=== PATIENT | female | born 1970 ===

== ENCOUNTER → 2017-11-20 | Outpatient (CLI) | payer OTHER | END | disposition home or self-care (01) | LOC: LAB 09:40 | PROVIDERS: ATTEND Preventive Medicine Preventive Medicine/Occupational Environmental Medicine | DX: Z02.1 Encounter for pre-employment examination (principal) | CPT/HCPCS: 86735; 86762; 86765; 86787 ==

== ENCOUNTER 2019-08-27 15:03 | Inpatient (IN) | payer OTHER ==
[~2019-08-27] VITALS: Ht 167.6 cm; Wt 69.8 kg
[2019-08-27] MEDS ORDERED: ASCORBIC ACID 500 MG TAB PO ONE (15:45)
[2019-08-27] MEDS ORDERED: ZINC SULFATE 220mg CAP or TAB PO ONE (15:45)
[2019-08-27] MEDS ORDERED: AZITHROMYCIN 500MG/ 250ML 250 ML IV ONE (15:45)
[2019-08-27] MEDS ORDERED: methylPREDNISolone SOD SUCC 125 MG/2 ML VL IV ONE (15:45)
[2019-08-27] MEDS ORDERED: ENOXAPARIN SOD 100 MG/1 ML SYRINGE SC ONE (15:45)
[2019-08-27 16:59] LABS: Basophils # (auto) 0 10 ^3/uL (0-0.2); Basophils % (auto) 0.5 % (0.0-2.0); Eosinophils # (auto) 0 10 ^3/uL (0-0.8); Eosinophils % (auto) 0.1 % (0.0-7.0); Hematocrit 45.5 % (36.0-46.0); Hemoglobin 15.4 g/dL (12.2-16.2); Lymphocytes # (auto) 0.6 10 ^3/uL (0.4-5.4); Lymphocytes % (auto) 6.4 % (10.0-50.0); Mean Corpuscular Hemoglobin 31.5 pg (28.0-32.0); Mean Corpuscular Hgb Conc. 33.8 g/dL (32.0-36.0); Mean Corpuscular Volume 93.3 fL (80.0-100.0); Monocytes # (auto) 0.1 10 ^3/uL (0-1.3); Monocytes % (auto) 1.6 % (0.0-12.0); Neutrophils % (auto) 91.4 % (37.0-80.0); Platelet Count (auto) 302 10^3/uL (140-450); Red Blood Cells 4.87 10^6/uL (4.0-5.20); White Blood Cell 8.7 10^3/uL (4.4-10.8)
[2019-08-27 17:20] LABS: Albumin 4.2 g/dL (3.4-5.0); Anion Gap 4 (5-15); BUN/Creatinine Ratio 10.7; Blood Urea Nitrogen 9 mg/dL (7-18); CRP High Sensitivity 0.07 mg/dL (< 0.3); Calcium 9.2 mg/dL (8.5-10.1); Carbon Dioxide 27 mmol/L (21-32); Chloride 107 mmol/L (98-107); GFR African American 93 mL/min; GFR Non-African American 77 mL/min; Glucose 128 mg/dL (74-106); Sodium 138 mmol/L (136-145)
[2019-08-27 17:25] LABS: Alanine Aminotransferase 30 U/L (13-56); Alkaline Phosphatase 66 U/L (45-117); Aspartate Aminotransferase 18 U/L (15-37); Bilirubin, Total 0.5 mg/dL (0.2-1.0); Lactate Dehydrogenase 194 U/L (84-246); Total Protein 8.1 g/dL (6.4-8.2)
[2019-08-27] MEDS ORDERED: MORPHINE SULF INJ 2 MG/ML SYRINGE 1ML IV PRN (20:00)
[2019-08-27] MEDS ORDERED: NITROGLYCERIN 0.4 MG SL TAB SL PRN (20:00)
[2019-08-27 22:39] VITALS: BP 126/74
--- NOTE | 2019-08-27 22:39 | NUR ---
Opening note Telemetry admit from ER KEVON HERNANDEZ admitted to Telemetry unit after SBAR received. Patient oriented to JENNY RYAN, RN primary RN, unit, room, bed, and unit policies regarding patient care and visiting hours. Patient now on continuous telemetry monitoring, tele box # 15 and telemetry reading on arrival to unit is 60. Patient placed on bedside oxygen, weighed by bedscale and encouraged to call if they need something. All questions and concerns addressed, patient verbalized understanding.
--- NOTE | 2019-08-28 01:09 | NUR ---
Laboratory Spoke to Nico. Nico said patient is positive for covid. Will continue to monitor.
[2019-08-28] MEDS ORDERED: ALBUAER3 IN (02:14)
[2019-08-28] MEDS ORDERED: PRE1T PO (02:14)
[2019-08-28 05:09] VITALS: BP 90/54
--- NOTE | 2019-08-28 07:35 | NUR ---
Lab called laboratory to draw for patient. Lab said they will come up.
--- NOTE | 2019-08-28 07:40 | NUR ---
closing note endorsed care to day shift KRYSTLE Meek
[2019-08-28 09:00] VITALS: BP 130/73
[2019-08-28 10:49] LABS: Basophils # (auto) 0 10 ^3/uL (0-0.2); Basophils % (auto) 0.1 % (0.0-2.0); Eosinophils # (auto) 0 10 ^3/uL (0-0.8); Hematocrit 45.3 % (36.0-46.0); Hemoglobin 14.9 g/dL (12.2-16.2); Lymphocytes # (auto) 1.3 10 ^3/uL (0.4-5.4); Lymphocytes % (auto) 8.8 % (10.0-50.0); Mean Corpuscular Hemoglobin 30.9 pg (28.0-32.0); Mean Corpuscular Hgb Conc. 32.8 g/dL (32.0-36.0); Mean Corpuscular Volume 94.4 fL (80.0-100.0); Monocytes # (auto) 0.5 10 ^3/uL (0-1.3); Monocytes % (auto) 3.3 % (0.0-12.0); Neutrophils # (auto) 12.7 10 ^3/uL (1.6-8.6); Neutrophils % (auto) 87.8 % (37.0-80.0); Platelet Count (auto) 312 10^3/uL (140-450); Red Cell Distribution Width 12.9 % (11.8-14.3); White Blood Cell 14.5 10^3/uL (4.4-10.8)
[2019-08-28 10:56] LABS: INR 1.05 (0.9-1.15); Partial Thromboplastin Time 25.9 sec (23.64-32.05)
[2019-08-28 11:04] LABS: Albumin 3.8 g/dL (3.4-5.0); Calcium 8.9 mg/dL (8.5-10.1); Magnesium 2.1 mg/dL (1.6-2.6); Potassium 3.2 mmol/L (3.5-5.1)
[2019-08-28 11:09] LABS: Bilirubin, Total 0.7 mg/dL (0.2-1.0); Phosphorus 2.7 mg/dL (2.5-4.90); Total Protein 7.3 g/dL (6.4-8.2)
[2019-08-28 12:46] VITALS: BP 113/70
[2019-08-28] MEDS ORDERED: POTASSIUM CHL 20 Meq TABLET PO ONE (15:30)
--- NOTE | 2019-08-28 16:10 | NUR ---
DOCTOR DRIVER AT BEDSIDE DISCUSSING POC AND THAT PATIENT WILL BE DISCHARGED TODAY PATIENT VERBALIZED UNDERSTANDING AND AGREES WITH POC AND D/C.
[2019-08-28 17:00] VITALS: BP 125/54
--- NOTE | 2019-08-28 18:25 | NUR ---
1755 08/28/19 - Contacted [employer] at [phone], requesting authorization for continued inpatient stay. Spoke with cryptologic technician operator/analyst Maureen who stated the caseworker intake was on another line. Per, Maureen continued inpatient stay has been approved for [facility]. Hard copy will be faxed to coordinator.
--- NOTE | 2019-08-28 18:52 | NUR ---
Discharge instructions given as ordered. Encourage to follow up with PMD as instructed. All questions and concerns addressed. Patient verbalized understanding. Medication reconciliation form completed and copy given to patient. Covid -19 education given, patient verbalized understanding. No home medications held in Pharmacy and none returned to patient, and no needed vaccines given. IV removed with catheter intact, pressure dressing applied. Telemetry unit returned to ICU. Patient taken to vehicle via wheelchair with all personal belongings, accompanied by staff. No distress noted at time of departure.
== END 2019-08-28 16:54 | disposition home or self-care (01) | DRG 177 ==
LOC: ER 15:03 → TELE 15:04 → TELE-EAST 22:25
PROVIDERS: ADMIT Hospitalist; ATTEND Internal Medicine
DX: U07.1 COVID-19 (principal); J12.89 Other viral pneumonia; J96.01 Acute respiratory failure with hypoxia; J84.9 Interstitial pulmonary disease, unspecified; J45.20 Mild intermittent asthma, uncomplicated; E87.6 Hypokalemia; R43.9 Unspecified disturbances of smell and taste; Z88.5 Allergy status to narcotic agent; Z90.49 Acquired absence of other specified parts of digestive tract; Z90.89 Acquired absence of other organs; Z98.51 Tubal ligation status; Z82.49 Family history of ischemic heart disease and other diseases of the circulatory system
CPT/HCPCS: 36415; 36600; 71045; 80053; 82728; 82805; 83605; 83615; 83735; 84100; 84484; 85025; 85379; 85610; 85730; 86141; 87040; 87070; 87804; 87880; 93005; G0378